=== PATIENT | male | born 1950 | race Caucasian/White ===

== ENCOUNTER 2021-10-07 07:03 | Day surgery (SDC) | payer MEDICARE ==
[2021-10-06 09:08] VITALS: BMI 34.6
[2021-10-07 07:48] VITALS: BP 168/107; TEMP 98.2
[2021-10-07] MEDS ORDERED: Iopamidol-M 200 41% 20 ML VIAL ONE (09:35)
== END 2021-10-07 09:15 | disposition home or self-care (01) ==
LOC: RAD 07:03
PROVIDERS: ATTEND Neurological Surgery
PROC: B01B1ZZ Fluoroscopy of Spinal Cord using Low Osmolar Contrast (ICD-10-PCS; principal; 2021-10-07)
DX: M51.16 Intervertebral disc disorders with radiculopathy, lumbar region (principal); M47.26 Other spondylosis with radiculopathy, lumbar region; M48.061 Spinal stenosis, lumbar region without neurogenic claudication; M43.16 Spondylolisthesis, lumbar region; M51.35 Other intervertebral disc degeneration, thoracolumbar region; M48.05 Spinal stenosis, thoracolumbar region; M51.37 Other intervertebral disc degeneration, lumbosacral region; M47.817 Spondylosis without myelopathy or radiculopathy, lumbosacral region; M48.07 Spinal stenosis, lumbosacral region; I70.0 Atherosclerosis of aorta; N28.1 Cyst of kidney, acquired; N20.0 Calculus of kidney; I10 Essential (primary) hypertension; M17.11 Unilateral primary osteoarthritis, right knee; E78.5 Hyperlipidemia, unspecified; Z79.899 Other long term (current) drug therapy
CPT/HCPCS: 62304; 72132; Q9966

== ENCOUNTER 2022-06-07 09:55 | Outpatient (CLI) | payer MEDICARE ==
[2022-06-07 11:59] LABS: #Eosinphils 0.2 10x3/uL (0.0-0.5); #Monocytes 0.7 10x3/uL (0.0-1.1); #Neutrophils 5.6 10x3/uL (1.5-8.4); %Basophils 0.5 % (0.0-2.0); %Eosinophils 2.9 % (0.0-6.0); %Lymphocytes 18.6 % (18.0-47.0); %Monocytes 9.1 % (0.0-10.0); %Neutrophils 68.4 % (40.0-75.0); Hemoglobin 15.6 g/dL (13.5-17.5); Mean Corpuscular HGB CONC 33.9 g/dL (32.0-36.0); Mean Corpuscular Hemoglobin 31.2 pg (27.0-33.0); Mean Platelet Volume 9.2 fl (7.4-10.4); Platelet Count 228 10x3/uL (150-450); RBC Distribution Width 12.8 % (11.5-14.5); White Blood Cell (WBC) Count 8.2 10x3/uL (3.5-10.5)
== END 2022-06-07 09:56 | disposition home or self-care (01) ==
LOC: LABBT 09:55
PROVIDERS: ATTEND Orthopaedic Surgery Hand Surgery
DX: Z01.818 Encounter for other preprocedural examination (principal); G56.01 Carpal tunnel syndrome, right upper limb
CPT/HCPCS: 85025; 93005; 93010

== ENCOUNTER 2022-06-09 08:34 | Day surgery (SDC) | payer MEDICARE ==
[2022-06-06 13:54] VITALS: BMI 36.3
[2022-06-09] MEDS ORDERED: Betamet Acet/Betamet Na Ph 30 MG/5 ML VIAL ONE (09:47)
[2022-06-09] MEDS ORDERED: Bacitracin Zinc Ointment 30 gm TUBE ONE (09:47)
[2022-06-09] MEDS ORDERED: Bupivacaine PF 0.5% 30 ML VIAL ONE (09:47)
[2022-06-09] MEDS ORDERED: fentaNYL PF 100 MCG/2 ML SYRINGE ONE (11:40)
[2022-06-09] MEDS ORDERED: Dexamethasone 20 MG/5 ML VIAL ONE (11:41)
[2022-06-09] MEDS ORDERED: PROPOFOL 200 MG/20 ML VIAL ONE (11:41)
[2022-06-09] MEDS ORDERED: ePHEDrine Sulfate 50 MG/10 ML VIAL ONE (11:41)
[2022-06-09] MEDS ORDERED: Ondansetron PF 4 MG/2 ML Vial ONE (11:41)
[2022-06-09] MEDS ORDERED: Lidocaine 1% PF 5 ML VIAL ONE (11:41)
[2022-06-09] MEDS ORDERED: CEFAZOLIN 2 GM VIAL ONE (11:55)
[2022-06-09] MEDS ORDERED: Sodium Chloride 0.9% 100 ML ONE (11:55)
[2022-06-09] MEDS ORDERED: Ketorolac Tromethamine 30 MG/ML VIAL ONE (13:05)
== END 2022-06-09 14:46 | disposition home or self-care (01) ==
LOC: SDC 08:34
PROVIDERS: ATTEND Orthopaedic Surgery Hand Surgery
PROC: 01N50ZZ Release Median Nerve, Open Approach (ICD-10-PCS; principal; 2022-06-09)
DX: G56.03 Carpal tunnel syndrome, bilateral upper limbs (principal); G56.22 Lesion of ulnar nerve, left upper limb; M50.123 Cervical disc disorder at C6-C7 level with radiculopathy; M48.02 Spinal stenosis, cervical region; M43.12 Spondylolisthesis, cervical region; I10 Essential (primary) hypertension; E78.5 Hyperlipidemia, unspecified; J45.909 Unspecified asthma, uncomplicated; Z79.899 Other long term (current) drug therapy
CPT/HCPCS: J0702; J1100; J1885; J2405; J2704; J3490; S0020

== ENCOUNTER 2022-08-14 06:01 | Inpatient (IN) | payer MEDICARE ==
[2022-08-14] MEDS ORDERED: Vancomycin 1 GM VIAL ONE (07:18)
[2022-08-14] MEDS ORDERED: CEFAZOLIN 2 GM VIAL ONE (07:29)
[2022-08-14] MEDS ORDERED: Sodium Chloride 0.9% 100 ML ONE (07:29)
[2022-08-14] MEDS ORDERED: HYDROmorphone 0.5 MG/0.5 ML SYRINGE ONE ×4 (07:47→12:42)
[2022-08-14] MEDS ORDERED: fentaNYL PF 100 MCG/2 ML SYRINGE ONE (07:47)
[2022-08-14] MEDS ORDERED: Dexmedetomidine 200 MCG/2 ML VIAL ONE (08:18)
[2022-08-14] MEDS ORDERED: MINERAL OIL/WHITE PETROLATUM 3.5 GM TUBE ONE (08:18)
[2022-08-14] MEDS ORDERED: Sevoflurane 250 ML INH ANEST BOTTLE ONE (08:18)
[2022-08-14] MEDS ORDERED: PROPOFOL 200 MG/20 ML VIAL ONE (08:39)
[2022-08-14] MEDS ORDERED: Rocuronium Bromide 10 MG/ML (10ML VIAL) ONE (08:39)
[2022-08-14] MEDS ORDERED: Ondansetron PF 4 MG/2 ML Vial ONE (08:39)
[2022-08-14] MEDS ORDERED: Dexamethasone 20 MG/5 ML VIAL ONE (08:39)
[2022-08-14] MEDS ORDERED: Lidocaine 1% PF 5 ML VIAL ONE (08:39)
[2022-08-14] MEDS ORDERED: PHENYLEPHRINE-NS 100 MCG/ML 10 ML SYRINGE ONE (08:39)
[2022-08-14] MEDS ORDERED: ePHEDrine Sulfate 50 MG/10 ML VIAL ONE (08:39)
[2022-08-14] MEDS ORDERED: Promethazine 25 MG TAB PO PRN (10:02)
[2022-08-14] MEDS ORDERED: diphenhydrAMINE 50 MG/ML VIAL IVP PRN (10:02)
[2022-08-14] MEDS ORDERED: HYDROcodone/Acetaminophen 10/325 mg Tablet PO PRN ×2 (10:02)
[2022-08-14] MEDS ORDERED: Milk Of Magnesia 30 ML UDCUP PO PRN (10:02)
[2022-08-14] MEDS ORDERED: Bisacodyl 10 MG SUPP PR PRN (10:02)
[2022-08-14] MEDS ORDERED: Morphine 2 MG/ML VIAL SLOW IVP PRN (10:02)
[2022-08-14] MEDS ORDERED: Ondansetron PF 4 MG/2 ML Vial IVP PRN (10:02)
[2022-08-14] MEDS ORDERED: Cyclobenzaprine 10 MG TAB PO PRN (10:02)
[2022-08-14] MEDS ORDERED: Mag-Al 1200 mg/1200 mg/30 ML UDCUP PO PRN (10:02)
[2022-08-14] MEDS ORDERED: fentaNYL 50 mcg/mL 1 mL Vial ONE (10:50)
[2022-08-14] MEDS: CEFAZOLIN 2 GM in Sodium Chloride 0.9% 100 ML IVPB SCH ×2 (14:12→21:55)
[2022-08-14] MEDS: Sodium Chloride 0.9% 1,000 ML IV SCH (14:12)
[2022-08-14 14:22] VITALS: BMI 34.8
[2022-08-14] MEDS: Acetaminophen 325 MG TAB PO PRN (21:53)
[2022-08-14] MEDS: traMADol HCl 50 MG TAB PO PRN (21:54)
[2022-08-15] MEDS: Sodium Chloride 0.9% 1,000 ML IV SCH ×3 (05:18→20:08)
[2022-08-15] MEDS: CEFAZOLIN 2 GM in Sodium Chloride 0.9% 100 ML IVPB SCH ×3 (05:18→20:10)
[2022-08-15] MEDS: traMADol HCl 50 MG TAB PO PRN (05:18)
[2022-08-15] MEDS: Lisinopril 20 MG TAB PO SCH (08:13)
[2022-08-15] MEDS: Amlodipine 5 MG TAB PO SCH (08:13)
[2022-08-15] MEDS: Mometasone 100 MCG/Formoterol 5 MCG 120 PUFF INHALER INH SCH (08:49)
[2022-08-15] MEDS: Bisoprolol Fumarate/HCTZ 5 mg/6.25 mg Tablet PO SCH (10:11)
[2022-08-16] MEDS: CEFAZOLIN 2 GM in Sodium Chloride 0.9% 100 ML IVPB SCH ×2 (05:52→14:35)
[2022-08-16] MEDS: Acetaminophen 325 MG TAB PO PRN (05:52)
[2022-08-16] MEDS: Mometasone 100 MCG/Formoterol 5 MCG 120 PUFF INHALER INH SCH (07:04)
[2022-08-16 08:15] VITALS: BP 140/69; TEMP 97.9
[2022-08-16] MEDS: Amlodipine 5 MG TAB PO SCH (08:17)
[2022-08-16] MEDS: Lisinopril 20 MG TAB PO SCH (08:18)
[2022-08-16] MEDS: Bisoprolol Fumarate/HCTZ 5 mg/6.25 mg Tablet PO SCH (12:01)
[2022-08-16] MEDS: Sodium Chloride 0.9% 1,000 ML IV SCH (15:56)
== END 2022-08-16 17:02 | disposition home or self-care (01) | DRG 517 ==
LOC: SDC 06:01 → T4-B 10:06 → OBSVTOIN 08-15 16:45
PROVIDERS: ADMIT Neurological Surgery; ATTEND Neurological Surgery
PROC: 01NB0ZZ Release Lumbar Nerve, Open Approach (ICD-10-PCS; principal; 2022-08-14)
DX: M48.062 Spinal stenosis, lumbar region with neurogenic claudication (principal); I10 Essential (primary) hypertension; E78.5 Hyperlipidemia, unspecified
CPT/HCPCS: 96374; 96376; G0378; J1100; J1170; J2405; J2704; J3010; J3370; J3490; J7050

== ENCOUNTER 2022-09-29 14:42 | Outpatient (CLI) | payer MEDICARE | END 2022-09-29 14:43 | disposition home or self-care (01) | LOC: BICCT 14:42 | PROVIDERS: ATTEND Orthopaedic Surgery Hand Surgery | DX: Z48.811 Encounter for surgical aftercare following surgery on the nervous system (principal); M47.812 Spondylosis without myelopathy or radiculopathy, cervical region; M89.38 Hypertrophy of bone, other site; Z98.890 Other specified postprocedural states | CPT/HCPCS: 72125 ==

== ENCOUNTER → 2023-04-06 | Day surgery (SDC) | payer MEDICARE ==
[~2023-04-06] MED LIST: 0.9 % Sodium Chloride 20 ML, Lidocaine 1% PF 5 ML, Iopamidol 5 ML, EPINEPHrine 0.1 MG FS SCH; Sodium Bicarbonate 2.5 MEQ/5 ML SDV ONE
== END ==
LOC: SJX 12:03 → EDSTATUS 13:00
PROVIDERS: ATTEND Orthopaedic Surgery Hand Surgery
PROC: BP09YZZ Plain Radiography of Left Shoulder using Other Contrast (ICD-10-PCS; principal; 2023-04-06)
DX: S46.012A Strain of muscle(s) and tendon(s) of the rotator cuff of left shoulder, initial encounter (principal); M19.012 Primary osteoarthritis, left shoulder; X58.XXXA Exposure to other specified factors, initial encounter
CPT/HCPCS: 23350; J0171; Q9967

== ENCOUNTER 2023-04-26 08:20 | Outpatient (CLI) | payer MEDICARE ==
[2023-04-26 09:19] LABS: #Basophils 0.1 10x3/uL (0.0-0.2); #Eosinphils 0.6 10x3/uL (0.0-0.5); #Monocytes 1.1 10x3/uL (0.0-1.1); #Neutrophils 7.4 10x3/uL (1.5-8.4); %Basophils 0.7 % (0.0-2.0); %Eosinophils 4.9 % (0.0-6.0); %Lymphocytes 17.4 % (18.0-47.0); %Monocytes 9.9 % (0.0-10.0); %Neutrophils 66.6 % (40.0-75.0); Hematocrit 47.2 % (38.8-50.0); Mean Corpuscular HGB CONC 33.9 g/dL (32.0-36.0); Mean Corpuscular Hemoglobin 30.8 pg (27.0-33.0); Mean Corpuscular Volume 90.9 fl (81.2-95.1); Mean Platelet Volume 8.9 fl (7.4-10.4); Platelet Count 252 10x3/uL (150-450); RBC Distribution Width 12.5 % (11.5-14.5); Red Blood Cell (RBC) Count 5.19 10x6/uL (4.32-5.72); White Blood Cell (WBC) Count 11.2 10x3/uL (3.5-10.5)
== END 2023-04-26 08:21 | disposition home or self-care (01) ==
LOC: LABBT 08:20
PROVIDERS: ATTEND Orthopaedic Surgery Hand Surgery
DX: Z01.818 Encounter for other preprocedural examination (principal); G56.02 Carpal tunnel syndrome, left upper limb
CPT/HCPCS: 85025; 93005; 93010

== ENCOUNTER 2023-05-01 10:48 | Day surgery (SDC) | payer MEDICARE ==
[2023-04-26 08:54] VITALS: BMI 34.4
[2023-05-01] MEDS ORDERED: Bacitracin Zinc Ointment 30 gm TUBE ONE (14:34)
[2023-05-01] MEDS ORDERED: Bupivacaine PF 0.5% 30 ML VIAL ONE (14:34)
[2023-05-01] MEDS ORDERED: Lidocaine 2% PF 5 ML VIAL ONE (14:38)
[2023-05-01] MEDS ORDERED: PROPOFOL 20 ML ONE (14:38)
[2023-05-01] MEDS ORDERED: CEFAZOLIN 2 GM VIAL ONE (14:42)
[2023-05-01] MEDS ORDERED: Sodium Chloride 0.9% 100 ML ONE (14:43)
[2023-05-01] MEDS ORDERED: Ondansetron PF 4 MG/2 ML Vial ONE (15:24)
[2023-05-01] MEDS ORDERED: Ketorolac Tromethamine 30 MG (1 mL) VIAL ONE (15:55)
== END 2023-05-01 17:00 | disposition home or self-care (01) ==
LOC: SDC 10:48
PROVIDERS: ATTEND Orthopaedic Surgery Hand Surgery
PROC: 01N50ZZ Release Median Nerve, Open Approach (ICD-10-PCS; principal; 2023-05-01)
DX: G56.02 Carpal tunnel syndrome, left upper limb (principal); S42.255A Nondisplaced fracture of greater tuberosity of left humerus, initial encounter for closed fracture; S46.012A Strain of muscle(s) and tendon(s) of the rotator cuff of left shoulder, initial encounter; I10 Essential (primary) hypertension; E78.5 Hyperlipidemia, unspecified; M19.90 Unspecified osteoarthritis, unspecified site; J45.909 Unspecified asthma, uncomplicated; Z98.890 Other specified postprocedural states; Z79.899 Other long term (current) drug therapy
CPT/HCPCS: A6223; J0665; J1885; J2001; J2704; J3490

== ENCOUNTER 2023-08-26 09:51 | Inpatient (IN) | payer MEDICARE ==
[2023-08-26 10:30] LABS: Hematocrit 49.3 % (42.0-52.0); Mean Corpuscular HGB CONC 34.5 g/dL (32.0-36.0); Mean Corpuscular Volume 86.9 fL (78.0-98.0); Mean Platelet Volume 9.5 fL (7.4-10.4); Platelet Count 148 10x3/uL (130-400); RBC Distribution Width 13.7 % (11.5-14.5); Red Blood Cell (RBC) Count 5.67 mill/uL (4.70-6.10)
[2023-08-26] MEDS ORDERED: Cefepime 2 GM VIAL ONE (10:41)
[2023-08-26] MEDS ORDERED: Sodium Chloride 0.9% 100 ML ONE (10:41)
[2023-08-26 10:50] LABS: ALT (SGPT) 18 U/L (8-55); AST (SGOT) 20 U/L (5-34); Albumin 3.4 g/dL (3.4-4.8); Alkaline Phosphatase 96 U/L (40-110); Anion Gap 17 mmol/L (10-20); BUN (Urea Nitrogen) 20 mg/dL (8.4-25.7); Bilirubin, Total 2.3 mg/dL (0.2-1.2); CK (CPK) 145 U/L (30-200); Calc. Creatinine Clearance 0 mL/min (70-130); Calcium 9.4 mg/dL (7.8-10.44); Carbon Dioxide 23 mmol/L (23-31); Chloride 99 mmol/L (98-107); Estimated GFR 61; Glucose 135 mg/dL (83-110); Potassium 4.8 mmol/L (3.5-5.1); Protein, Total 7.4 g/dL (5.8-8.1); Sodium 134 mmol/L (136-145)
[2023-08-26 11:01] LABS: Band 9 % (5-11); Lymphocytes 6 % (21-51); Macrocytosis SLIGHT = 6-15 cells HPF (0-5); Monocytes 6 % (0-10); Neutrophil 79 % (42-75); Platelet Adequacy Comment Platelets Normal
[2023-08-26 11:17] LABS: Troponin I 0.056 ng/mL (< 0.028)
[2023-08-26] MEDS ORDERED: Vancomycin 1 GM/200 ML (FROZEN) BAG ONE (11:21)
[2023-08-26 11:22] LABS: Bacteria/HPF 4+ HPF (None Seen); Bilirubin Negative (Negative); Blood, Urine 3+ (Negative); CAUTI Indications for Culture Dysuria,urgency,freq; Clarity Extra Turbid (Clear); Glucose, Urine (Dipstick) Normal (Negative); Ketone, Urine Negative (Negative); Leukocyte 500 Leu/uL (Negative); Nitrite 1+ (Negative); Protein, Urine (Dipstick) 100 mg/dL (Neg-Trace); RBC/HPF Greater than 50 HPF (0-3); Specific Gravity, Urine 1.028 (1.002-1.036); Squamous Epithelial None Seen HPF (0-3); WBC/HPF Greater than 50 HPF (0-3); pH, Urine 5.5 (5.0-9.0)
[2023-08-26 11:23] LABS: Urine Culture Reflex Yes Yes
[2023-08-26] MEDS ORDERED: Senokot S 8.6-50 MG TAB PO PRN (11:56)
[2023-08-26 13:56] VITALS: BMI 33.5
[2023-08-26] MEDS ORDERED: Iopamidol 370 76% 100 ML VIAL ONE (14:06)
[2023-08-26] MEDS: Acetaminophen 325 MG TAB PO SCH (14:45)
[2023-08-26] MEDS: Vancomycin (BATCH) 1.5 GM in Premix 1 BAG IVPB SCH (14:46)
[2023-08-26] MEDS: Sodium Chloride 0.9% 1,000 ML IV SCH (14:52)
[2023-08-26 19:37] LABS: Troponin I 0.032 ng/mL (< 0.028)
[2023-08-26] MEDS: Cefepime 2 GM in Sodium Chloride 0.9% 100 ML IVPB SCH (20:29)
[2023-08-26] MEDS: Famotidine 20 MG TAB PO SCH (20:30)
[2023-08-26 23:02] LABS: Troponin I 0.025 ng/mL (< 0.028)
[2023-08-27] MEDS: traMADol HCl 50 MG TAB PO PRN (04:42)
[2023-08-27 04:45] LABS: Vancomycin, Random 10.4 ug/mL (See Comment)
[2023-08-27 04:56] LABS: ALT (SGPT) 16 U/L (8-55); AST (SGOT) 19 U/L (5-34); Albumin 2.5 g/dL (3.4-4.8); Alkaline Phosphatase 72 U/L (40-110); Anion Gap 14 mmol/L (10-20); BUN (Urea Nitrogen) 18 mg/dL (8.4-25.7); Bilirubin, Total 0.9 mg/dL (0.2-1.2); Calc. Creatinine Clearance 118 mL/min (70-130); Calcium 8.2 mg/dL (7.8-10.44); Carbon Dioxide 19 mmol/L (23-31); Chloride 105 mmol/L (98-107); Estimated GFR 95; Globulin 2.8 g/dL (2.4-3.5); Glucose 105 mg/dL (83-110); Potassium 4.6 mmol/L (3.5-5.1); Protein, Total 5.3 g/dL (5.8-8.1); Sodium 133 mmol/L (136-145)
[2023-08-27 04:58] LABS: #Basophils Less than 0.03 10x3/uL (0.0-0.2); #Eosinphils Less than 0.03 10x3/uL (0.0-0.7); %Basophils 0.1 % (0.0-1.0); %Eosinophils 0.1 % (0.0-10.0); %Lymphocytes 5.2 % (21.0-51.0); %Monocytes 6.3 % (0.0-10.0); %Neutrophils 87.6 % (42.0-75.0); Hematocrit 38.4 % (42.0-52.0); Hemoglobin 13.1 g/dL (14.0-18.0); Mean Corpuscular HGB CONC 34.1 g/dL (32.0-36.0); Mean Corpuscular Hemoglobin 30.3 pg (27.0-31.0); Mean Corpuscular Volume 88.9 fL (78.0-98.0); Platelet Count 103 10x3/uL (130-400); RBC Distribution Width 13.9 % (11.5-14.5); Red Blood Cell (RBC) Count 4.32 mill/uL (4.70-6.10)
[2023-08-27] MEDS: Enoxaparin 40 MG (0.4 mL) SYRINGE SC SCH (09:19)
[2023-08-27] MEDS ORDERED: Vancomycin (BATCH) 1.25 GM in Premix 1 BAG IVPB SCH (11:00)
[2023-08-27] MEDS ORDERED: Vancomycin (BATCH) 1.5 GM in Premix 1 BAG IVPB SCH (12:00)
[2023-08-27 12:40] VITALS: BMI 33.5
[2023-08-28] MEDS: Digoxin 0.5 MG/2 ML AMP SLOW IVP SCH (04:13)
[2023-08-28 04:38] LABS: #Basophils Less than 0.03 10x3/uL (0.0-0.2); %Basophils 0.1 % (0.0-1.0); %Eosinophils 0.5 % (0.0-10.0); %Lymphocytes 6.8 % (21.0-51.0); %Monocytes 6.8 % (0.0-10.0); %Neutrophils 85.3 % (42.0-75.0); Hematocrit 41.8 % (42.0-52.0); Hemoglobin 14.6 g/dL (14.0-18.0); Mean Corpuscular HGB CONC 34.9 g/dL (32.0-36.0); Mean Corpuscular Hemoglobin 31.3 pg (27.0-31.0); Mean Corpuscular Volume 89.5 fL (78.0-98.0); Mean Platelet Volume 10.3 fL (7.4-10.4); Platelet Count 136 10x3/uL (130-400); RBC Distribution Width 14.1 % (11.5-14.5); Red Blood Cell (RBC) Count 4.67 mill/uL (4.70-6.10)
[2023-08-28 04:58] LABS: Anion Gap 14 mmol/L (10-20); BUN (Urea Nitrogen) 21 mg/dL (8.4-25.7); Calc. Creatinine Clearance 109 mL/min (70-130); Calcium 8.8 mg/dL (7.8-10.44); Carbon Dioxide 18 mmol/L (23-31); Chloride 105 mmol/L (98-107); Estimated GFR 93; Glucose 110 mg/dL (83-110); Magnesium 1.8 mg/dL (1.6-2.6); Potassium 4.4 mmol/L (3.5-5.1); Sodium 133 mmol/L (136-145)
[2023-08-28] MEDS: Amlodipine 5 MG TAB PO SCH (09:35)
[2023-08-28] MEDS: cefTRIAXone\\ROCEPHIN 1 GM in Sodium Chloride 0.9% 100 ML IVPB SCH (09:35)
[2023-08-29 05:14] LABS: #Basophils Less than 0.03 10x3/uL (0.0-0.2); %Basophils 0.3 % (0.0-1.0); %Eosinophils 1.1 % (0.0-10.0); %Lymphocytes 14.7 % (21.0-51.0); %Monocytes 12.5 % (0.0-10.0); %Neutrophils 70.8 % (42.0-75.0); Anion Gap 11 mmol/L (10-20); BUN (Urea Nitrogen) 16 mg/dL (8.4-25.7); Calc. Creatinine Clearance 108 mL/min (70-130); Calcium 8.4 mg/dL (7.8-10.44); Carbon Dioxide 23 mmol/L (23-31); Chloride 106 mmol/L (98-107); Estimated GFR 92; Glucose 101 mg/dL (83-110); Hematocrit 37.8 % (42.0-52.0); Hemoglobin 13.1 g/dL (14.0-18.0); Mean Corpuscular HGB CONC 34.7 g/dL (32.0-36.0); Mean Corpuscular Volume 86.7 fL (78.0-98.0); Mean Platelet Volume 9.9 fL (7.4-10.4); Platelet Count 127 10x3/uL (130-400); Potassium 4.2 mmol/L (3.5-5.1); Red Blood Cell (RBC) Count 4.36 mill/uL (4.70-6.10); Sodium 136 mmol/L (136-145)
[2023-08-29] MEDS: cefTRIAXone\\ROCEPHIN 2 GM in Sodium Chloride 0.9% 100 ML IVPB SCH (09:28)
[2023-08-29] MEDS: Bisoprolol Fumarate 5 MG TAB PO SCH (09:29)
[2023-08-29] MEDS: Flecainide 50 MG TAB PO SCH (20:41)
[2023-08-29] MEDS: Atorvastatin Calcium 20 MG TAB PO SCH (20:41)
[2023-08-30 06:04] LABS: Hematocrit 40.4 % (42.0-52.0); Hemoglobin 13.7 g/dL (14.0-18.0); Mean Corpuscular HGB CONC 33.9 g/dL (32.0-36.0); Mean Corpuscular Hemoglobin 29.7 pg (27.0-31.0); Mean Corpuscular Volume 87.6 fL (78.0-98.0); Mean Platelet Volume 9.8 fL (7.4-10.4); Platelet Count 158 10x3/uL (130-400); RBC Distribution Width 14.4 % (11.5-14.5); Red Blood Cell (RBC) Count 4.61 mill/uL (4.70-6.10)
[2023-08-30 06:12] LABS: Anion Gap 14 mmol/L (10-20); BUN (Urea Nitrogen) 19 mg/dL (8.4-25.7); Calc. Creatinine Clearance 99 mL/min (70-130); Calcium 8.9 mg/dL (7.8-10.44); Carbon Dioxide 23 mmol/L (23-31); Chloride 107 mmol/L (98-107); Estimated GFR 87; Glucose 102 mg/dL (83-110); Potassium 4.7 mmol/L (3.5-5.1); Sodium 139 mmol/L (136-145)
[2023-08-30 06:35] LABS: Band 9 % (5-11); Eosinophils 2 % (0-10); Lymphocytes 19 % (21-51); Macrocytosis SLIGHT = 6-15 cells HPF (0-5); Monocytes 7 % (0-10); Myelocyte 1 % (0-0); Neutrophil 63 % (42-75); Platelet Adequacy Comment Platelets Normal; Smudge Cells 7.8 %
[2023-08-30] MEDS: Amlodipine 5 MG TAB PO SCH (08:11)
[2023-08-30] MEDS: Furosemide 20 MG TAB PO SCH (08:11)
[2023-08-30] MEDS: Enoxaparin 60 MG (0.6 mL) SYRINGE SC SCH (11:12)
[2023-08-30 12:51] VITALS: BP 107/87; TEMP 97.4
[2023-08-30] MEDS ORDERED: Enoxaparin 100 MG (1 mL) SYRINGE SC SCH (21:00)
== END 2023-08-30 16:38 | disposition home or self-care (01) | DRG 872 ==
LOC: ERS 09:51 → 2NO 11:59
PROVIDERS: ADMIT Family Medicine; ATTEND Internal Medicine
DX: A41.51 Sepsis due to Escherichia coli [E. coli] (principal); N39.0 Urinary tract infection, site not specified; I47.19 Other supraventricular tachycardia; E78.5 Hyperlipidemia, unspecified; I10 Essential (primary) hypertension; H54.61 Unqualified visual loss, right eye, normal vision left eye; R60.0 Localized edema; I48.0 Paroxysmal atrial fibrillation; E66.9 Obesity, unspecified; I35.0 Nonrheumatic aortic (valve) stenosis; Z79.899 Other long term (current) drug therapy; Z87.442 Personal history of urinary calculi; Z68.33 Body mass index [BMI] 33.0-33.9, adult
CPT/HCPCS: 36415; 71045; 74177; 80048; 80053; 80202; 81001; 82550; 83605; 83735; 83880; 84484; 85025; 87040; 87077; 87086; 87149; 87186; 93005; 93010; 96365; 96366; 96367; J0692; J0696; J1160; J1650; J3370; J3370-JW; J3490; J7050; Q9967